=== PATIENT | female | born 1955 | race Caucasian/White ===

== ENCOUNTER 2018-02-01 10:08 | Day surgery (SDC) | payer OTHER ==
[2018-01-31 09:41] LABS: ALANINE AMINOTRANSFERASE 38 U/L (12-78); ALBUMIN 3.7 g/dL (3.4-5.0); ANION GAP 8 mmol/L (5-15); CALCIUM 8.6 mg/dL (8.5-10.1); CHLORIDE 107 mmol/L (98-107); CREATININE 1.03 mg/dL (0.55-1.02)
[2018-01-31 09:43] LABS: ALKALINE PHOSPHATASE 75 U/L (45-117); BILIRUBIN,TOTAL 0.6 mg/dL (0.2-1.0); TOTAL PROTEIN 6.9 g/dL (6.4-8.2)
[~2018-02-01] VITALS: Ht 157.5 cm; Wt 79.8 kg
[~2018-02-01 10:08] MED LIST: LEVO112T4 PO; LISI1TAB5 PO
[2018-02-01 10:30] VITALS: BP 130/85
[2018-02-01] MEDS ORDERED: SCOPOLAMINE PATCH, 1.5MG PATCH.TD72 TD ONE (10:30)
[2018-02-01] MEDS ORDERED: ACETAMINOPHEN 500 MG TABLET PO ONE (10:30)
[2018-02-01] MEDS ORDERED: ONDANSETRON ODT 8 MG PO ONE (10:30)
[2018-02-01] MEDS ORDERED: LACTATED RINGERS 1,000 ML IV SCH ×2 (10:33→11:00)
[2018-02-01] MEDS ORDERED: LIDOCAINE-MPF 1%, 2ML INFIL ONE (11:00)
[2018-02-01] MEDS ORDERED: BUPIVACAINE 0.25% ONE ×2 (12:40)
[2018-02-01] MEDS ORDERED: EPINEPHRINE 1 MG/ML, 1ML ONE ×2 (12:40→12:49)
[2018-02-01] MEDS ORDERED: PROPOFOL 10 MG/ML, 20ML ONE (12:48)
[2018-02-01] MEDS ORDERED: FENTANYL PF 250 MCG/5ML ONE (12:49)
[2018-02-01] MEDS ORDERED: LIDOCAINE/PF 1%, 30ML ONE (12:49)
[2018-02-01] MEDS ORDERED: MIDAZOLAM 1 MG/ML, 2ML ONE (12:49)
[2018-02-01] MEDS ORDERED: DEXAMETHASONE 4 MG/ML, 1ML ONE ×2 (12:51)
[2018-02-01] MEDS ORDERED: CEFAZOLIN 1,000 MG ONE ×2 (12:52)
[2018-02-01] MEDS ORDERED: WATER-INJECTION,STERILE 10 ML IV ONE (12:52)
[2018-02-01] MEDS ORDERED: KETOROLAC 30 MG/1 ML ONE (13:26)
== END 2018-02-01 14:10 ==
LOC: OUT 10:08
PROVIDERS: ATTEND Orthopaedic Surgery
DX: G56.01 Carpal tunnel syndrome, right upper limb (principal); I10 Essential (primary) hypertension; E03.9 Hypothyroidism, unspecified; Z86.39 Personal history of other endocrine, nutritional and metabolic disease
CPT/HCPCS: 36415; 64721; 80053; 93005; J0171; J0690; J1885; J2250; J3010; J3490; J7120; Q0162; J1100; J2704

== ENCOUNTER → 2018-08-28 | Outpatient (CLI) | payer OTHER | END | disposition home or self-care (01) | LOC: CFH 10:03 | PROVIDERS: ATTEND Family Medicine | DX: Z12.31 Encounter for screening mammogram for malignant neoplasm of breast (principal) | CPT/HCPCS: 77067 ==

== ENCOUNTER 2020-01-31 07:09 | Day surgery (SDC) | payer OTHER ==
[~2020-01-31] VITALS: Ht 157.5 cm; Wt 77.0 kg
[~2020-01-31 07:09] MED LIST changes: +LISI1TAB19 PO; -LISI1TAB5 PO
[2020-01-31 07:27] VITALS: BP 121/80
[2020-01-31] MEDS ORDERED: LACTATED RINGERS 1,000 ML IV SCH (07:40)
[2020-01-31] MEDS ORDERED: CHLORHEXIDINE 15 ML UDC MM STA (07:40)
[2020-01-31] MEDS ORDERED: LIDOCAINE 1%-EPI 1:100K, 20ML ONE (09:32)
[2020-01-31 09:34] LABS: ALANINE AMINOTRANSFERASE 29 U/L (12-78); ALBUMIN 3.7 g/dL (3.4-5.0); ANION GAP 8 mmol/L (5-15); CALCIUM 9.2 mg/dL (8.5-10.1); CHLORIDE 107 mmol/L (98-107); CREATININE 0.92 mg/dL (0.55-1.02)
[2020-01-31 09:36] LABS: ALKALINE PHOSPHATASE 77 U/L (45-117); BILIRUBIN,TOTAL 0.6 mg/dL (0.2-1.0); TOTAL PROTEIN 7.1 g/dL (6.4-8.2)
[2020-01-31] MEDS ORDERED: MIDAZOLAM 1 MG/ML, 5ML ONE (09:37)
[2020-01-31] MEDS ORDERED: FENTANYL PF 250 MCG/5ML ONE (09:37)
[2020-01-31] MEDS ORDERED: CEFAZOLIN 1,000 MG ONE (09:41)
[2020-01-31] MEDS ORDERED: ONDANSETRON 2MG/ML, 2ML IVPush PRN (10:00)
[2020-01-31] MEDS ORDERED: MEPERIDINE/PF 25MG/0.5ML IVPush PRN (10:00)
[2020-01-31] MEDS ORDERED: OXYcodone 5 MG/5 ML ORAL.SOL UDC PO PRN (10:00)
[2020-01-31] MEDS ORDERED: PROMETHAZINE 25 MG/ML, 1ML IVPush PRN (10:00)
[2020-01-31] MEDS ORDERED: ACETAMINOPHEN 325 MG TABLET PO PRN (10:00)
[2020-01-31] MEDS ORDERED: HYDROmorphone 1 MG/ML, 1ML INJ IVPush PRN (10:00)
[2020-01-31] MEDS ORDERED: hydrALAzine 20 MG/ML, 1ML IV PRN (10:00)
[2020-01-31] MEDS ORDERED: LABETALOL 5MG/ML, 20ML IV PRN (10:00)
[2020-01-31] MEDS ORDERED: FENTANYL PF 100 MCG/2ML IV PRN (10:00)
[2020-01-31] MEDS ORDERED: ONDANSETRON 2MG/ML, 2ML ONE (10:04)
[2020-01-31] MEDS ORDERED: PROPOFOL 10 MG/ML, 20ML ONE (10:04)
== END 2020-01-31 11:35 | disposition home or self-care (01) ==
LOC: OUT 07:09
PROVIDERS: ATTEND Orthopaedic Surgery
DX: G56.02 Carpal tunnel syndrome, left upper limb (principal); Z11.59 Encounter for screening for other viral diseases; I10 Essential (primary) hypertension; E07.9 Disorder of thyroid, unspecified; Z79.890 Hormone replacement therapy; Z79.899 Other long term (current) drug therapy; Z87.891 Personal history of nicotine dependence
CPT/HCPCS: 36415; 64721; 80053; 93005; J0690; J2250; J2405; J2704; J3010; J3490; J7120; U0001